=== PATIENT | male | born 1970 | race Caucasian/White ===

== ENCOUNTER 2016-10-16 13:23 | Emergency (ER) | payer BC ==
[2016-10-16] MEDS ORDERED: Bacitracin Zinc 1 Packet ONE ×4 (14:15→14:19)
--- NOTE | 2016-10-16 21:23 | RAD ---
RIGHT THUMB: Date: 10-16-16 FINDINGS: No acute fracture was seen. There may have been an old injury to the base of the proximal phalanx of the thumb, lateral side. No current bony injury or soft tissue foreign body was seen. Laceration is apparent at the injury site. IMPRESSION: No acute bony finding. POS: HOME
== END 2016-10-16 14:42 | disposition home or self-care (01) ==
LOC: BURERS 13:23
DX: S61.012A Laceration without foreign body of left thumb without damage to nail, initial encounter (principal); F17.210 Nicotine dependence, cigarettes, uncomplicated; W29.3XXA Contact with powered garden and outdoor hand tools and machinery, initial encounter; Y92.69 Other specified industrial and construction area as the place of occurrence of the external cause; Y99.0 Civilian activity done for income or pay; E11.9 Type 2 diabetes mellitus without complications
CPT/HCPCS: 12001; 96372; J2270